=== PATIENT | male | born 1950 | race Caucasian/White ===

== ENCOUNTER → 2024-02-25 | Outpatient (CLI) | payer MEDICARE, OTHER | LOC: CPPFTMAIN 13:07 | PROVIDERS: ATTEND Internal Medicine | DX: J44.9 Chronic obstructive pulmonary disease, unspecified (principal) | CPT/HCPCS: 94060; 94726; 94729 ==

== ENCOUNTER → 2024-09-15 | Outpatient (CLI) | payer MEDICARE ==
--- NOTE | 2024-09-15 13:42 | CTL ---
EXAMINATION TYPE: CT Low Dose Lung DATE OF EXAM ORDERED: 09/15/2024 COMPARISON: Chest radiograph 02/10/2023 CLINICAL INDICATION: Male, 74 years old with history of Z12.2 Screening; F17.210 Nicotine dependence; PHH, tobacco user, Lung cancer screening, History of Smoking/tobacco use. TECHNIQUE: Low dose computed tomography scan was performed through the chest at 1 mm thick sections a nd reconstructed images in multiple planes at 1 mm and [address] DLP: 92.[address] CTDI: 2.5 mGy Automated exposure control for dose reduction was used. CT DIAGNOSTIC QUALITY: Satisfactory FINDINGS: Nodules: Posterior left upper lobe 3.5 mm solid pulmonary nodule (series 6, image 17). Left lower lobe solid 2.1 mm pulmonary nodule (series 6, image 34). Right lower lobe 4.4 mm pulmonary nodule (series 6, image 36). LUNGS: COPD: Severity: None Fibrosis: Severity: None Lymph nodes: None Other findings: None RIGHT PLEURAL SPACE: Effusion: None Calcification: None Thickening: None Pneumothorax: None LEFT PLEURAL SPACE: Effusion: None Calcification: None Thickening: None Pneumothorax: None HEART: Heart Size: Normal size, aortic valvular calcifications. Coronary Calcification: Large, most prominent along the LAD. Pericardial Effusion: None OTHER FINDINGS: Upper abdomen: None Bony thorax: DISH of the mid to lower thoracic spine. Supraclavicular region: None Other: Minimal bilateral gynecomastia. IMPRESSION: 1. Few pulmonary nodules measuring less than 5 mm. 2. Large coronary calcifications which can be an indicator of coronary artery disease. CT LUNG RAD AND CT CHEST RECOMMENDATION: Lung-Rad 2 Benign Appearance or Behavior: Continue annual sc reening with LDCT in 12 months. S Modifier (other clinically significant findings): None [facility], , 09/15/2024 1:40 PM
== END | disposition home or self-care (01) ==
LOC: RADCTMAIN 12:53
PROVIDERS: ATTEND Internal Medicine
DX: Z12.2 Encounter for screening for malignant neoplasm of respiratory organs (principal); I25.10 Atherosclerotic heart disease of native coronary artery without angina pectoris; F17.210 Nicotine dependence, cigarettes, uncomplicated; R91.8 Other nonspecific abnormal finding of lung field
CPT/HCPCS: 71271